=== PATIENT | female | born 1995 | race Hispanic/Latino ===

== ENCOUNTER 2024-05-13 07:32 | Emergency (ER) | payer OTHER, SELFPAY ==
[2024-05-13 07:34] VITALS: BP 122/83
[2024-05-13 08:52] VITALS: BP 120/78
--- NOTE | 2024-05-13 08:59 | ED.GENMED ---
History of Present Illness
General
Chief Complaint: Headache
Source: patient
Exam Limitations: none
Time Seen by Provider: 05/13/24 08:46
Nursing documentation reviewed up to this point in time: agreed with
History of Present Illness
History of Present Illness:
28-year-old female with history of migraines, popliteal entrapment syndrome, last surgery was by Dr. Soler in 2018. Patient presents stating 10 days ago she was putting milk back on a shelf in her refrigerator at home, reaching up she had a sudden
onset of bilateral posterior neck pain. The next day she went to urgent care and had an x-ray which she states showed straightening of the normal curve of the neck but otherwise negative. She was diagnosed with a neck strain started on a 7-day
steroid taper and given prescription for muscle relaxants. She states she never took the muscle relaxant and she does not like to take medication. She states the steroids helped and she felt well until yesterday when she developed sudden onset of
bilateral shoulder posterior neck pain which radiated up and around the neck to the forehead. Today she feels like the forehead headache is radiating around down the neck and the upper back.
Denies numbness, tingling, weakness in her upper extremities. She denies vision changes. She has been nauseous and vomited multiple times since 3 AM this morning, last time was about 90 minutes ago prior to arrival. She states she does feel
nauseous at this time. She states her headache is 8/10.
Past History
Past History
ED Past Medical History: Other (popliteal artery entrapment); Negative Asthma, HTN, Hypercholesterolemia or NIDDM
ED Past Surgical History: Other (Popliteal artery entrapment syndrome surgery in 2013 and 2014)
Social History
Tobacco: Non-smoker
Alcohol: Occasional
Drug: None
Personal: Single
Living: alone
Employment: Employed
Family History
Family History: Other (Noncontributory, no PE or DVT)
Review of Systems
Review of Systems
Allergies reviewed?: Yes
All Other Systems: ROS reviewed and negative except as documented in HPI and ROS
Constitutional: Denies fever
EENT: Denies sore throat
Respiratory: Denies trouble breathing
Cardiac: Denies chest pain
ABD/GI: Reports nausea and vomiting; Denies abdominal pain or diarrhea
Musculoskeletal: Reports neck pain
Skin: Reports no symptoms
Neurological: Reports headache; Denies dizzy, weakness or numbness
Phy Exam
Physical Exam
Physical Exam:
GENERAL: No acute distress. A&Ox3.
CONSTITUTIONAL: Afebrile.
EYES: PERRL, conjunctivae normal
Neck: Supple, full ROM, pain elicited with backward extension, no pain with rotation left or right or chin to chest.
ENMT: moist mucus membranes, Pharynx nl, TMs normal
RESPIRATORY: Regular respirations, nonlabored, lungs clear.
CARDIOVASCULAR: Regular rate and rhythm, no murmurs, no rubs.
GI: Soft, nontender, normal BS
MUSCULOSKELETAL: Tender to palpate bilateral paracervical muscles, upper trapezius muscles bilaterally, moves with ease. Well perfused.
SKIN: Warm, dry, pink
PSYCH: Normal mood and affect. Well kept, interactive and appropriate
NEUROLOGIC: Awake, alert and oriented. No focal neurological deficits. Ambulates well with steady gait.
Course
Orders/Labs/Results
Orders:
Orders
05/13/24 08:59
IV Insert/Care/Rem.- Treatment PRN
0.9% Sodium Chloride 1000 ml [Nss] 1,000 ml IV BOLUS
Diphenhydramine [Benadryl] 50 mg IV NOW STA
Ondansetron Injectable [Zofran] 4 mg IV NOW STA
Vital Signs
Initial and Last Documented VS:
Initial Vital Signs
Temp Pulse Resp BP Pulse Ox
98.2 F 82 18 122/83 99
05/13/24 07:34 05/13/24 07:34 05/13/24 07:34 05/13/24 07:34 05/13/24 07:34
Last Documented Vital Signs
Temp Pulse Resp BP Pulse Ox
98.2 F 57 16 108/69 100
05/13/24 07:34 05/13/24 11:14 05/13/24 11:14 05/13/24 11:14 05/13/24 11:14
MDM/Problems Addressed
Differential Diagnosis Includes:
Headache, migraine, cervical strain, thoracic strain
MDM/Problems Addressed:
28-year-old female with history of migraines, popliteal entrapment syndrome, last surgery was by Dr. Soler in 2018. Patient presents stating 10 days ago she was putting milk back on a shelf in her refrigerator at home, reaching up she had a sudden
onset of bilateral posterior neck pain. The next day she went to urgent care and had an x-ray which she states showed straightening of the normal curve of the neck but otherwise negative. She was diagnosed with a neck strain started on a 7-day
steroid taper and given prescription for muscle relaxants. She states she never took the muscle relaxant and she does not like to take medication. She states the steroids helped and she felt well until yesterday when she developed sudden onset of
bilateral shoulder posterior neck pain which radiated up and around the neck to the forehead. Today she feels like the forehead headache is radiating around down the neck and the upper back.
Denies numbness, tingling, weakness in her upper extremities. She denies vision changes. She has been nauseous and vomited multiple times since 3 AM this morning, last time was about 90 minutes ago prior to arrival. She states she does feel
nauseous at this time. She states her headache is 8/10.
Afebrile, NAD
10:30 a.m.
After IV Benadryl and Zofran, pt sleeping soundly, IVFs infusing
2:00 PM:
Patient states her headache is gone.
Instructed to take her Flexeril as prescribed for the shoulder and neck tightness/pain as well as Ibuprofen as needed.
F/U w PCP if not improving within next week.
Pt ambulated out with normal gait. Appreciative of the care.
*Critical Care Note
Total Time (30-74mins, 75-104mins- exclusive of procedures): Not Applicable
ED Attending Note
-
Portions of this chart may have been created with voice recognition software.� Occasional wrong word or��sound alike� substitutions may have occurred due to the inherent limitations of voice recognition software.
Discharge Plan
Departure
Patient Disposition: Home (Routine Discharge)
Date of Disposition: 05/13/24
Time of Disposition: 11:07
Patient with high blood pressure during this ER visit?: No
Condition: Good
Discharge Problem:
Headache, Acute cervical myofascial strain, Acute thoracic myofascial strain
Instructions: Cervical Muscle Strain, Headache, Adult (DC)
Prescriptions:
No Action
ondansetron 4 MG tablet,disintegrating
4 mg PO TIDPRN PRN (Reason: nausea/vomiting) Qty: 8 0RF
sulfamethoxazole-trimethoprim 1 TABLET tablet
1 tab PO BID Qty: 13 0RF
ondansetron 4 MG tablet,disintegrating
4 mg PO TIDPRN PRN (Reason: Nausea/Vomiting) Qty: 10 0RF
Referrals:
Angela Nava, DO [Family Provider] - As needed
Activity Restrictions/Additional Instructions:
As we discussed, Ibuprofen 600 mg (with food) every 6 hours as needed for pain.
Take the Flexeril 10 mg every 8 hours as needed. It can make you sleepy and slow the reflexes so no driving or operating any machinery for 8 hours after taking it.
See your doctor in 4-5 days if not much better by then.
Interventions
Interventions:
*Risk Screen - Suicide Last Done: 05/13/24 07:34
*General Assessment Last Done: 05/13/24 07:34
*Neglect/Abuse Screening Last Done: 05/13/24 07:34
ED- Fall Risk Assessment Last Done: 05/13/24 11:30
*ED COVID-19 Vaccine History Last Done: 05/13/24 08:52
*Nursing Disposition Last Done: 05/13/24 11:30
ED- Neurological Assessment Last Done: 05/13/24 08:52
Discharge Date and Time
Discharge Date/Time: 05/13/24 11:30
Print Language: CROATIAN
[2024-05-13] MEDS: ZOFRAN 4 MG IV (09:18)
[2024-05-13] MEDS: BENADRYL 50 MG IV (09:18)
[2024-05-13] MEDS: NSS 1000 IV (09:19)
[2024-05-13 11:14] VITALS: BP 108/69
== END 2024-05-13 11:30 | disposition home or self-care (01) ==
LOC: EMR 07:32
PROVIDERS: EMERGENCY PHYSICIAN Emergency Medicine; FAMILY PHYSICIAN Family Medicine
DX: S29.012A Strain of muscle and tendon of back wall of thorax, initial encounter (principal); S16.1XXA Strain of muscle, fascia and tendon at neck level, initial encounter; R51.9 Headache, unspecified; R11.2 Nausea with vomiting, unspecified; X58.XXXA Exposure to other specified factors, initial encounter; G43.909 Migraine, unspecified, not intractable, without status migrainosus; I77.89 Other specified disorders of arteries and arterioles; F41.9 Anxiety disorder, unspecified; Z88.1 Allergy status to other antibiotic agents; Z88.5 Allergy status to narcotic agent
CPT/HCPCS: 99284; 96374; 96375; 96361